=== PATIENT | female | born 1960 | race African-American/Black ===

== ENCOUNTER 2017-07-12 10:47 | Inpatient (IN) | payer OTHER ==
[2017-07-12 13:06] VITALS: BMI 25.7
--- NOTE | 2017-07-12 15:19 | HP ---
CIWA Score - CIWA Score Nausea/Vomitin-No Nausea/No Vomiting Muscle Tremors: 4-Moderate,w/Arms Extend Anxiety: 3 Agitation: 4-Moderately Restless Paroxysmal Sweats: 3 Orientation: 0-Oriented Tacttile Disturbances: 0-None Auditory Disturbances: 0-None Visual Disturbances: 0-None Headache: 2-Mild CIWA-Ar Total Score: 16 Admission ROS BHS - HPI Chief Complaint: I am here for detox Allergies/Adverse Reactions: Allergies Allergy/AdvReac Type Severity Reaction Status Date / Time No Known Allergies Allergy Verified 07/12/17 14:45 History of Present Illness: pt requires detox Exam Limitations: Physical Impairment - Ebola screening Have you traveled outside of the country in the last 21 days: No Have you had contact with anyone from an Ebola affected area: No Have you been sick,other than usual withdrawal symptoms: No Do you have a fever: No - Review of Systems Constitutional: Chills, Diaphoresis, Loss of Appetite, Night Sweats, Changes in sleep EENT: reports: Nose Bleeding, Nose Congestion Respiratory: reports: No Symptoms reported Cardiac: reports: Syncope GI: reports: Diarrhea, Poor Fluid Intake : reports: No Symptoms Reported Musculoskeletal: reports: Joint Pain Integumentary: reports: Flushing, Sweating Neuro: reports: Headache, Tingling, Tremors Endocrine: reports: Excessive Sweating, Flushing, Intolerance to Cold, Increased Urine Hematology: reports: No Symptoms Reported Psychiatric: reports: Judgement Intact, Mood/Affect Appropiate, Orientated x3, Agitated, Anxious Other Systems: Reviewed and Negative Patient History - Patient Medical History Hx Anemia: No Hx Asthma: No Hx Chronic Obstructive Pulmonary Disease (COPD): No Hx Cancer: No Hx Cardiac Disorders: No Hx Congestive Heart Failure: No Hx Hypertension: No Hx Hypercholesterolemia: No Hx Pacemaker: No HX Cerebrovascular Accident: No Hx Seizures: No Hx Dementia: No Hx Diabetes: No Hx Gastrointestinal Disorders: No Hx Genitourinary Disorders: No Hx Sexually Transmitted Disorders: No Hx Renal Disease (ESRD): No Hx Thyroid Disease: No Hx Human Immunodeficiency Virus (HIV): No (negative) Hx Hepatitis C: Yes Hx Depression: No Hx Suicide Attempt: No (denies) Hx Bipolar Disorder: No Hx Schizophrenia: No - Patient Surgical History Past Surgical History: No Hx Neurologic Surgery: No Hx Cataract Extraction: No Hx Cardiac Surgery: No Hx Lung Surgery: No Hx Breast Surgery: No Hx Breast Biopsy: No Hx Abdominal Surgery: No Hx Appendectomy: No Hx Cholecystectomy: No Hx Genitourinary Surgery: No Hx Section: No Hx Orthopedic Surgery: Yes (fx, right thigh) - PPD History Previous Implant?: Yes Documented Results: Negative w/o proof Implanted On Prior R Admission?: No PPD to be Administered?: Yes - Reproductive History Patient is a Female of Child Bearing Age (11 -55 yrs old): No - Smoking Cessation Smoking history: Never smoked Have you smoked in the past 12 months: No Hx Chewing Tobacco Use: No Initiated information on smoking cessation: No - Substance & Tx. History Hx Alcohol Use: Yes Hx Substance Use: No Substance Use Type: Alcohol Hx Substance Use Treatment: Yes (last detox at [facility] 3 weeks ago) - Substances Abused Alcohol-vodka/beer Route: Oral Frequency: 3-6 times per week Amount used: 1/2 pt./4 (16 oz.) Age of first use: 15 Date of Last Use: 07/12/17 Family Disease History - Family Disease History Family History: Denies Admission Physical Exam S - Vital Signs Vital Signs: Vital Signs - 24 hr 07/12/17 13:01 Temperature 99.1 F Pulse Rate 94 H Respiratory 20 Rate Blood Pressure 124/59 - Physical General Appearance: Yes: Appropriately Dressed, Moderate Distress, Tremorous, Irritable, Sweating, Anxious HEENTM: Yes: Normal Voice, Nasal Congestion, Rhinorrhea Respiratory: Yes: Lungs Clear, Normal Breath Sounds, No Respiratory Distress Neck: Yes: No masses,lesions,Nodules Breast: Yes: Within Normal Limits Cardiology: Yes: Regular Rhythm, Regular Rate, S1, S2 Abdominal: Yes: Normal Bowel Sounds, Non Tender, Soft Genitourinary: Yes: Within Normal Limits Back: Yes: Normal Inspection Musculoskeletal: Yes: full range of Motion, Muscle Pain Extremities: Yes: Normal Capillary Refill, Tremors Neurological: Yes: Fully Oriented, Alert, Normal Response Integumentary: Yes: Normal Color, Diaphoresis Lymphatic: Yes: Within Normal Limits - Diagnostic (1) Alcohol dependence with uncomplicated withdrawal Current Visit: Yes Status: Chronic (2) Knee pain, chronic Current Visit: Yes Status: Chronic Qualifiers: Laterality: right Qualified Code(s): M25.561 - Pain in right knee; M25.561 - Pain in right knee; G89.29 - Other chronic pain; G89.29 - Other chronic pain (3) Hepatitis C Current Visit: Yes Status: Chronic Qualifiers: Hepatic coma status: without hepatic coma Cleared for Admission [facility] - Detox or Rehab [facility] Level of Care: Medically Managed Detox Regimen/Protocol: Librium [facility] Breath Alcohol Content Breath Alcohol Content: 0.054 Urine Pregancy Test - Result Urine Test Results: Negative- NO Line Present Urine Drug Screen - Results Drug Screen Negative: Yes
[2017-07-12] MEDS ORDERED: MAGNESIUM CITRATE 300 ML BOTTLE PO PRN (15:23)
[2017-07-12] MEDS ORDERED: chlordiazePOXIDE HCL 25 MG CAPSULE PO PRN (15:23)
[2017-07-12] MEDS ORDERED: MENTHOL/PHENOL 1 EACH UD MM PRN (15:23)
[2017-07-12] MEDS ORDERED: hydrOXYzine PAMOATE 50 MG CAPSULE (FP) PO PRN (15:23)
[2017-07-12] MEDS ORDERED: MAG HYDROX/AL HYDROX/SIMETH 30 ML UNIT-DOSE CUP PO PRN (15:23)
[2017-07-12] MEDS ORDERED: MAGNESIUM HYDROX 2400MG/30ML ORAL SUSPENSION 30 ML CUP PO PRN (15:23)
[2017-07-12] MEDS ORDERED: LOPERAMIDE HCL 2 MG CAPSULE PO PRN (15:23)
[2017-07-12] MEDS ORDERED: chlordiazePOXIDE HCL 25 MG CAPSULE PO ONE (16:45)
[2017-07-12] MEDS: chlordiazePOXIDE HCL 25 MG CAPSULE PO SCH ×2 (17:30→23:30)
[2017-07-12 21:58] LABS: URINE APPEARANCE CLEAR; URINE BILIRUBIN NEGATIVE (NEGATIVE); URINE BLOOD NEGATIVE (NEGATIVE); URINE COLOR LTYELLOW; URINE GLUCOSE (UA) NEGATIVE (NEGATIVE); URINE KETONE NEGATIVE (NEGATIVE); URINE NITRITE NEGATIVE (NEGATIVE); URINE PROTEIN NEGATIVE (NEGATIVE); URINE UROBILINOGEN NEGATIVE mg/dL (0.2-1.0)
[2017-07-12] MEDS: THIAMINE HCL 100 MG TABLET (FP) PO SCH (23:30)
[2017-07-13] MEDS: chlordiazePOXIDE HCL 25 MG CAPSULE PO SCH ×4 (05:32→22:10)
[2017-07-13 09:49] LABS: ALBUMIN 3.3 g/dl (3.4-5.0); ALK PHOS 76 U/L (45-117); ANION GAP 10 (8-16); BILIRUBIN,TOTAL 0.6 mg/dL (0.2-1.0); CALCIUM 8.8 mg/dL (8.5-10.1); CO2 27 mmol/L (21-32); CREATININE 0.6 mg/dL (0.55-1.02); GLUCOSE,RANDOM 93 mg/dL (74-106); SGOT/AST 52 U/L (15-37); SGPT/ALT 58 U/L (12-78); TOT PROT 6.6 g/dl (6.4-8.2)
[2017-07-13] MEDS: PRENATAL VITAMINS W/ FOLIC ACID TABLET (FP) PO SCH (10:14)
[2017-07-13] MEDS: P-EPHED 60MG/TRIPROLIDI 2.5MG TABLET PO PRN (10:15)
[2017-07-13] MEDS: ACETAMINOPHEN 325 MG TABLET (FP) PO PRN ×2 (10:17→22:36)
--- NOTE | 2017-07-13 10:35 | PN ---
S CIWA - CIWA Score Nausea/Vomitin Muscle Tremors: 3 Anxiety: 3 Agitation: 3 Paroxysmal Sweats: 1-Minimal Palms Moist Orientation: 0-Oriented Tacttile Disturbances: 1-Very Mild Itch/Numbness Auditory Disturbances: 1-Very Mild Visual Disturbances: 0-None Headache: 1-Very Mild CIWA-Ar Total Score: 16 BHS Progress Note (SOAP) Subjective: alert,irritable,anxious,interrupted sleep,tremor Objective: 07/13/17 10:33 Vital Signs Temperature 99.1 F 07/13/17 06:00 Pulse Rate 87 07/13/17 06:00 Respiratory Rate 18 07/13/17 06:00 Blood Pressure 145/93 07/13/17 06:00 O2 Sat by Pulse Oximetry (%) ekg nsr inverted t in v3 no chest pain,no sob,no dizziness Assessment: 07/13/17 10:34 withdrawal symptom Plan: continue detox
[2017-07-13 11:09] LABS: URINE LEUK ESTERASE Negative (NEGATIVE)
[2017-07-13] MEDS ORDERED: FLU VACCINE QUAD 60 MCG/0.5 ML (MDV 17-18) IM ONE (12:00)
--- NOTE | 2017-07-13 12:05 | EKG ---
Test Reason : Blood Pressure : / mmHG Vent. Rate : 084 BPM Atrial Rate : 084 BPM P-R Int : 192 ms QRS Dur : 106 ms QT Int : 418 ms P-R-T Axes : 058 045 046 degrees QTc Int : 493 ms NORMAL SINUS RHYTHM NONSPECIFIC T WAVE ABNORMALITY PROLONGED QT ABNORMAL ECG NO PREVIOUS ECGS AVAILABLE Confirmed by DIVINE CANELA, ELISABETH ([id number]) on 07/13/2017 12:04:48 PM Referred By: Hussain Zaldivar Confirmed By:ELISABETH HASKINS MD
[2017-07-13] MEDS: FLUTICASONE PROP 0.05% 16 GM NASAL SPRAY NS SCH ×2 (12:21→22:10)
[2017-07-13 14:51] LABS: MCH 32.2 pg (25.7-33.7); MCHC 32.2 g/dl (32.0-36.0); MEAN PLT VOLUME 9.4 fl (7.5-11.1); PLATELET COUNT 114 K/MM3 (134-434); WHITE BLOOD COUNT 6.6 K/mm3 (4.0-10.0)
[2017-07-13 15:13] LABS: HIV 1 & 2 AB NEGATIVE; HIV 1 AGp24 NEGATIVE
[2017-07-13] MEDS: THIAMINE HCL 100 MG TABLET (FP) PO SCH (22:10)
[2017-07-13] MEDS: diphenhydrAMINE HCL 50 MG CAPSULE PO PRN (22:11)
[2017-07-14] MEDS: chlordiazePOXIDE HCL 25 MG CAPSULE PO SCH ×2 (05:27→10:31)
[2017-07-14] MEDS: P-EPHED 60MG/TRIPROLIDI 2.5MG TABLET PO PRN (05:27)
[2017-07-14] MEDS: IBUPROFEN 400 MG TABLET (FP) PO PRN (05:27)
[2017-07-14] MEDS: PRENATAL VITAMINS W/ FOLIC ACID TABLET (FP) PO SCH (10:31)
[2017-07-14] MEDS: FLUTICASONE PROP 0.05% 16 GM NASAL SPRAY NS SCH ×2 (10:32→22:29)
[2017-07-14] MEDS: ACETAMINOPHEN 325 MG TABLET (FP) PO PRN (10:33)
[2017-07-14] MEDS: guaiFENesin/D-METHORPHAN HB 10 ML UNIT-DOSE CUPS PO PRN (10:34)
--- NOTE | 2017-07-14 10:50 | PN ---
S CIWA - CIWA Score Nausea/Vomitin Muscle Tremors: 3 Anxiety: 3 Agitation: 2 Paroxysmal Sweats: 1-Minimal Palms Moist Orientation: 0-Oriented Tacttile Disturbances: 1-Very Mild Itch/Numbness Auditory Disturbances: 1-Very Mild Visual Disturbances: 0-None Headache: 2-Mild CIWA-Ar Total Score: 16 BHS Progress Note (SOAP) Subjective: alert,irritable,anxious,interrupted sleep,tremor Objective: 07/14/17 10:47 Vital Signs Temperature 97.5 F L 07/14/17 09:29 Pulse Rate 91 H 07/14/17 09:29 Respiratory Rate 16 07/14/17 09:29 Blood Pressure 120/79 07/14/17 09:29 O2 Sat by Pulse Oximetry (%) Laboratory Last Values WBC 6.6 K/mm3 (4.0-10.0) 07/13/17 07:00 RBC 3.36 M/mm3 (3.60-5.2) L 07/13/17 07:00 Hgb 10.8 GM/dL (10.7-15.3) 07/13/17 07:00 Hct 33.6 % (32.4-45.2) 07/13/17 07:00 MCV 100.0 fl (80-96) H 07/13/17 07:00 MCH 32.2 pg (25.7-33.7) 07/13/17 07:00 MCHC 32.2 g/dl (32.0-36.0) 07/13/17 07:00 RDW 20.0 % (11.6-15.6) H 07/13/17 07:00 Plt Count 114 K/MM3 (134-434) L 07/13/17 07:00 MPV 9.4 fl (7.5-11.1) 07/13/17 07:00 Sodium 139 mmol/L (136-145) 07/13/17 07:00 Potassium 3.3 mmol/L (3.5-5.1) L 07/13/17 07:00 Chloride 102 mmol/L (98-107) 07/13/17 07:00 Carbon Dioxide 27 mmol/L (21-32) 07/13/17 07:00 Anion Gap 10 (8-16) 07/13/17 07:00 BUN 7 mg/dL (7-18) 07/13/17 07:00 Creatinine 0.6 mg/dL (0.55-1.02) 07/13/17 07:00 Creat Clearance w eGFR > 60 (>60) 07/13/17 07:00 Random Glucose 93 mg/dL (74-106) 07/13/17 07:00 Calcium 8.8 mg/dL (8.5-10.1) 07/13/17 07:00 Total Bilirubin 0.6 mg/dL (0.2-1.0) 07/13/17 07:00 AST 52 U/L (15-37) H 07/13/17 07:00 ALT 58 U/L (12-78) 07/13/17 07:00 Alkaline Phosphatase 76 U/L (45-117) 07/13/17 07:00 Total Protein 6.6 g/dl (6.4-8.2) 07/13/17 07:00 Albumin 3.3 g/dl (3.4-5.0) L 07/13/17 07:00 Urine Color Ltyellow 07/12/17 21:30 Urine Appearance Clear 07/12/17 21:30 Urine pH 6.0 (5.0-8.0) 07/12/17 21:30 Ur Specific [place] 1.015 (1.005-1.025) 07/12/17 21:30 Urine Protein Negative (NEGATIVE) 07/12/17 21:30 Urine Glucose (UA) Negative (NEGATIVE) 07/12/17 21:30 Urine Ketones Negative (NEGATIVE) 07/12/17 21:30 Urine Blood Negative (NEGATIVE) 07/12/17 21:30 Urine Nitrite Negative (NEGATIVE) 07/12/17 21:30 Urine Bilirubin Negative (NEGATIVE) 07/12/17 21:30 Urine Urobilinogen Negative mg/dL (0.2-1.0) 07/12/17 21:30 Ur Leukocyte Esterase Negative (NEGATIVE) 07/12/17 21:30 RPR Titer Nonreactive (NONREACTIVE) 07/13/17 07:00 HIV 1&2 Antibody Screen Negative 07/13/17 09:10 HIV P24 Antigen Negative 07/13/17 09:10 Assessment: 07/14/17 10:50 withdrawal symptom Plan: continue detox
[2017-07-14] MEDS: chlordiazePOXIDE 5 MG CAPSULE PO SCH ×2 (17:15→22:27)
[2017-07-14] MEDS: diphenhydrAMINE HCL 50 MG CAPSULE PO PRN (22:27)
[2017-07-14] MEDS: THIAMINE HCL 100 MG TABLET (FP) PO SCH (22:27)
[2017-07-15] MEDS: ACETAMINOPHEN 325 MG TABLET (FP) PO PRN ×2 (05:20→22:22)
[2017-07-15] MEDS: chlordiazePOXIDE 5 MG CAPSULE PO SCH ×2 (05:20→10:20)
[2017-07-15] MEDS: POTASSIUM CHLORIDE TABS 20 MEQ TABLET.ER (FP) PO SCH ×3 (08:02→22:20)
[2017-07-15] MEDS: FLUTICASONE PROP 0.05% 16 GM NASAL SPRAY NS SCH ×2 (10:00→22:19)
[2017-07-15] MEDS: PRENATAL VITAMINS W/ FOLIC ACID TABLET (FP) PO SCH (10:20)
[2017-07-15] MEDS: IBUPROFEN 400 MG TABLET (FP) PO PRN (10:21)
[2017-07-15] MEDS: P-EPHED 60MG/TRIPROLIDI 2.5MG TABLET PO PRN (10:21)
[2017-07-15] MEDS: guaiFENesin/D-METHORPHAN HB 10 ML UNIT-DOSE CUPS PO PRN (10:21)
--- NOTE | 2017-07-15 10:28 | PN ---
S Progress Note (SOAP) Subjective: alert,irritable,anxious,interrupted sleep Objective: 07/15/17 10:27 Vital Signs Temperature 97.4 F L 07/15/17 06:14 Pulse Rate 84 07/15/17 06:14 Respiratory Rate 18 07/15/17 06:14 Blood Pressure 139/84 07/15/17 06:14 O2 Sat by Pulse Oximetry (%) Assessment: 07/15/17 10:27 withdrawal symptom Plan: continue detox,discharge in am
[2017-07-15] MEDS: chlordiazePOXIDE HCL 10 MG CAPSULE PO SCH ×2 (17:55→22:20)
[2017-07-15] MEDS: THIAMINE HCL 100 MG TABLET (FP) PO SCH (22:19)
[2017-07-15] MEDS: diphenhydrAMINE HCL 50 MG CAPSULE PO PRN (22:20)
[2017-07-16] MEDS: chlordiazePOXIDE HCL 10 MG CAPSULE PO SCH (05:47)
[2017-07-16] MEDS: ACETAMINOPHEN 325 MG TABLET (FP) PO PRN ×2 (05:48→10:41)
--- NOTE | 2017-07-16 10:01 | DS ---
[facility] Detox Discharge Summary Admission Date: 07/12/17 Discharge Date: 07/16/17 - History Present History: Alcohol Dependence Additional Comments: FOLLOW UP WITH AFTER CARE PROGRAM ARRANGEMENT Pertinent Past History: HEPATITIS C KNEE PAIN - Physical Exam Results Vital Signs: Vital Signs Temperature 98.2 F 07/16/17 06:38 Pulse Rate 85 07/16/17 06:38 Respiratory Rate 18 07/16/17 06:38 Blood Pressure 106/66 07/16/17 06:38 O2 Sat by Pulse Oximetry (%) Pertinent Admission Physical Exam Findings: WITHDRAWAL SYMPTOM - Treatment Hospital Course: Detox Protocol Followed, Detoxed Safely, Responded well, Discharged Condition Good Patient has Accepted a Rehab Referral to: DECLINED - Medication Discharge Medications: Ambulatory Orders Unobtainable [Unobtainable] 07/12/17 - Diagnosis (1) Alcohol dependence with uncomplicated withdrawal Current Visit: Yes Status: Chronic (2) Hepatitis C Current Visit: Yes Status: Chronic Qualifiers: Hepatic coma status: without hepatic coma (3) Knee pain, chronic Current Visit: Yes Status: Chronic Qualifiers: Laterality: right Qualified Code(s): M25.561 - Pain in right knee; M25.561 - Pain in right knee; G89.29 - Other chronic pain; G89.29 - Other chronic pain - AMA Did Patient Leave Against Medical Advice: No
[2017-07-16] MEDS: FLUTICASONE PROP 0.05% 16 GM NASAL SPRAY NS SCH (10:40)
[2017-07-16] MEDS: PRENATAL VITAMINS W/ FOLIC ACID TABLET (FP) PO SCH (10:40)
[2017-07-16] MEDS: POTASSIUM CHLORIDE TABS 20 MEQ TABLET.ER (FP) PO SCH (10:40)
[2017-07-16 10:57] VITALS: BP 116/79; PULSE 108; TEMP 98.4
== END 2017-07-16 10:57 | disposition home or self-care (01) | DRG 775 ==
LOC: YASAS 10:47 → Y6N 15:18
PROVIDERS: ADMIT Internal Medicine; ATTEND Internal Medicine
PROC: HZ2ZZZZ Detoxification Services for Substance Abuse Treatment (ICD-10-PCS; principal; 2017-07-12)
DX: F10.230 Alcohol dependence with withdrawal, uncomplicated (principal); B18.2 Chronic viral hepatitis C; M25.561 Pain in right knee; G89.29 Other chronic pain
CPT/HCPCS: 36415; 80053; 81003; 85027; 86593; 87389; 90688; 93005; 93010; G0008

== ENCOUNTER 2018-06-04 11:06 | Inpatient (IN) | payer OTHER ==
[2018-06-04 12:49] VITALS: BMI 28.1
--- NOTE | 2018-06-04 14:44 | HP ---
CIWA Score - CIWA Score Nausea/Vomitin Muscle Tremors: 3 Anxiety: 3 Agitation: 2 Paroxysmal Sweats: 3 Orientation: 0-Oriented Tacttile Disturbances: 0-None Auditory Disturbances: 0-None Visual Disturbances: 0-None Headache: 0-None Present CIWA-Ar Total Score: 14 Admission ROS S - HPI Chief Complaint: "They told me to come and get detox" Allergies/Adverse Reactions: Allergies Allergy/AdvReac Type Severity Reaction Status Date / Time No Known Allergies Allergy Verified 06/04/18 13:12 History of Present Illness: 58 y/o female with a long history of alcohol addiction here requesting detox. Pt stated she came because the [facility] wanted her to get detox. She returned to the halfway last night from an alcohol related hospital visit for 5 days. Pt stated the longest she had been sober for was a month". Hx of Seizure, Rheumatoid arthritis. Denies any psychiatric hx. Denies past or current SI. - Ebola screening Have you traveled outside of the country in the last 21 days: No (N) Have you had contact with anyone from an Ebola affected area: No Have you been sick,other than usual withdrawal symptoms: No Do you have a fever: No - Review of Systems Constitutional: No Symptoms Reported EENT: reports: No Symptoms Reported Respiratory: reports: No Symptoms reported Cardiac: reports: No Symptoms Reported GI: reports: Abdominal Distended, Diarrhea, Vomiting : reports: No Symptoms Reported Musculoskeletal: reports: No Symptoms Reported Integumentary: reports: No Symptoms Reported Neuro: reports: No Symptoms reported Endocrine: reports: No Symptoms Reported Hematology: reports: No Symptoms Reported Psychiatric: reports: Mood/Affect Appropiate, Orientated x3 Other Systems: Reviewed and Negative Patient History - Patient Medical History Hx Anemia: No Hx Asthma: No Hx Chronic Obstructive Pulmonary Disease (COPD): No Hx Cancer: No Hx Cardiac Disorders: No Hx Congestive Heart Failure: No Hx Hypertension: No Hx Hypercholesterolemia: No Hx Pacemaker: No HX Cerebrovascular Accident: No Hx Seizures: Yes (MAY 2018) Hx Dementia: No Hx Diabetes: No Hx Gastrointestinal Disorders: Yes (Gastritis) Hx Liver Disease: Yes (cirrhosis) Hx Genitourinary Disorders: No Hx Sexually Transmitted Disorders: No Hx Renal Disease (ESRD): No Hx Thyroid Disease: No Hx Human Immunodeficiency Virus (HIV): No (negative) Hx Hepatitis C: Yes Hx Depression: No Hx Suicide Attempt: No Hx Bipolar Disorder: No Hx Schizophrenia: No - Patient Surgical History Past Surgical History: Yes Hx Neurologic Surgery: Yes (head trauma , 2008 in [facility] Hx Cataract Extraction: No Hx Cardiac Surgery: No Hx Lung Surgery: Yes Hx Breast Surgery: No Hx Breast Biopsy: No Hx Abdominal Surgery: No Hx Appendectomy: No Hx Cholecystectomy: No Hx Genitourinary Surgery: No Hx Section: No Hx Orthopedic Surgery: Yes (fx, right thigh (fall) , 2011) Hx Hysterectomy: No Anesthesia Reaction: No - PPD History Previous Implant?: Yes Implanted On Prior [facility] Admission?: Yes Date: 07/14/17 Results: 0mm PPD to be Administered?: No - Reproductive History Patient is a Female of Child Bearing Age (11 -55 yrs old): No - Smoking Cessation Smoking history: Never smoked Have you smoked in the past 12 months: No Hx Chewing Tobacco Use: No - Substances Abused Alcohol Route: Oral Frequency: Daily Amount used: 1/2 PINT OF VODKA, 2 CANS OF BEER Age of first use: 15 Date of Last Use: 06/04/18 Family Disease History - Family Disease History Family Disease History: Heart Disease: Father (), Other: Father, Mother (Alive) Admission Physical Exam [facility] - Vital Signs Vital Signs: Vital Signs - 24 hr 06/04/18 12:45 Temperature 99.1 F Pulse Rate 83 Respiratory 18 Rate Blood Pressure 148/101 - Physical General Appearance: Yes: Mild Distress HEENTM: Yes: Other (missing teeth, no dentures) Respiratory: Yes: Normal Breath Sounds, No Respiratory Distress Neck: Yes: Within Normal Limits Breast: Yes: Breast Exam Deferred Cardiology: Yes: Regular Rate Abdominal: Yes: Non Tender, Distended Genitourinary: Yes: Within Normal Limits Back: Yes: Normal Inspection Musculoskeletal: Yes: full range of Motion, Gait Steady Extremities: Yes: Normal Capillary Refill Neurological: Yes: Motor Strength 5/5 Integumentary: Yes: Within Normal Limits Lymphatic: Yes: Within Normal Limits - Diagnostic (1) Alcohol dependence with uncomplicated withdrawal Current Visit: Yes Status: Acute (2) Seizure due to alcohol withdrawal Current Visit: Yes Status: Chronic (3) Depressive disorder Current Visit: Yes Status: Chronic Comment: As per self-report. Cleared for Admission [facility] - Detox or Rehab [facility] Level of Care: Medically Managed Detox Regimen/Protocol: Librium [facility] Breath Alcohol Content Breath Alcohol Content: 0.003 Urine Pregancy Test - Result Urine Test Results: Negative- NO Line Present Urine Drug Screen - Results Drug Screen Negative: No Urine Drug Screen Results: BZO-Benzodiazepines, TCA-Tricyclic Antidepress
[2018-06-04] MEDS ORDERED: hydrOXYzine PAMOATE 50 MG CAPSULE (FP) PO PRN (15:07)
[2018-06-04] MEDS ORDERED: LOPERAMIDE HCL 2 MG CAPSULE PO PRN (15:07)
[2018-06-04] MEDS ORDERED: IBUPROFEN 400 MG TABLET (FP) PO PRN (15:07)
[2018-06-04] MEDS ORDERED: ACETAMINOPHEN 325 MG TABLET (FP) PO PRN (15:07)
[2018-06-04] MEDS ORDERED: chlordiazePOXIDE HCL 25 MG CAPSULE PO PRN (15:07)
[2018-06-04] MEDS ORDERED: guaiFENesin/D-METHORPHAN HB 10 ML UNIT-DOSE CUPS PO PRN (15:07)
[2018-06-04] MEDS ORDERED: MAGNESIUM CITRATE 300 ML BOTTLE PO PRN (15:07)
[2018-06-04] MEDS ORDERED: MAGNESIUM HYDROX 2400MG/30ML ORAL SUSPENSION 30 ML CUP PO PRN (15:07)
[2018-06-04] MEDS ORDERED: P-EPHED 60MG/TRIPROLIDI 2.5MG TABLET PO PRN (15:07)
[2018-06-04] MEDS ORDERED: MENTHOL/PHENOL 1 EACH UD MM PRN (15:07)
[2018-06-04] MEDS ORDERED: MAG HYDROX/AL HYDROX/SIMETH 30 ML UNIT-DOSE CUP PO PRN (15:07)
[2018-06-04] MEDS: ASPIRIN 81 MG CHEWABLE TABLETS PO SCH (15:44)
[2018-06-04] MEDS: chlordiazePOXIDE HCL 25 MG CAPSULE PO SCH ×2 (18:10→22:13)
[2018-06-04] MEDS ORDERED: levETIRAcetam 250 MG TABLET (FP) PO ONE (20:05)
[2018-06-04] MEDS ORDERED: levETIRAcetam 500 MG TABLET (FP) PO ONE (20:05)
[2018-06-04 20:38] LABS: URINE APPEARANCE CLEAR; URINE BILIRUBIN NEGATIVE (<2.0 mg/dL); URINE COLOR LTYELLOW; URINE GLUCOSE (UA) NEGATIVE (NEGATIVE); URINE KETONE TRACE (NEGATIVE); URINE NITRITE NEGATIVE (NEGATIVE); URINE PROTEIN NEGATIVE (NEGATIVE); URINE UROBILINOGEN NEGATIVE mg/dL (0.2-1.0)
[2018-06-04 20:45] LABS: URINE LEUK ESTERASE 2+ (NEGATIVE)
[2018-06-04 20:48] LABS: EPI CELLS RARE /HPF (FEW); URINE MUCUS RARE
[2018-06-04] MEDS ORDERED: levETIRAcetam 250 MG TABLET (FP) PO SCH (22:00)
[2018-06-04] MEDS: MELATONIN 5 MG TABLETS PO PRN (22:13)
[2018-06-04] MEDS: THIAMINE HCL 100 MG TABLET (FP) PO SCH (22:13)
[2018-06-05] MEDS: chlordiazePOXIDE HCL 25 MG CAPSULE PO SCH ×4 (06:10→22:10)
--- NOTE | 2018-06-05 09:56 | CONSULT ---
[facility] Psychiatric Consult - Data Date of interview: 06/05/18 Admission source: [facility] Identifying data: Patient is a 58 year old female, , unemployed, homless and supported by [facility]. This is one of multiple admissions for patient. Pt. admitted to for alcohol dependence. Substance Abuse History: - Smoking Cessation. Smoking history: Never smoked. Have you smoked in the past 12 months: No. Hx Chewing Tobacco Use: No. - Substances Abused. Alcohol. Route: Oral. Frequency: Daily. Amount used: 1 /2 PINT OF VODKA, 2 CANS OF BEER. Age of first use: 15. Date of Last Use: 12/17 Medical History: Seizures, Gastritis, Cirrhosis, fracture right thigh surgery Psychiatric History: Patient denies h/o psychiatric hospitalization, outpatient care and suicide attempt. Patient's psychiatric history is unclear. As per pharmacy claims patient is prescribed lexapro 5mg and doxepin 50mg but states she does not take medications. Pt. reports poor sleep. Physical/Sexual Abuse/Trauma History: denies. Mental Status Exam - Mental Status Exam Alert and Oriented to: Time, Place, Person Cognitive Function: Good Patient Appearance: Well Groomed Mood: Euthymic Affect: Mood Congruent Patient Behavior: Appropriate, Cooperative Speech Pattern: Clear, Appropriate Voice Loudness: Normal Thought Process: Intact, Goal Oriented Thought Disorder: Not Present Hallucinations: Denies Suicidal Ideation: Denies Homicidal Ideation: Denies Insight/Judgement: Poor Sleep: Poorly Appetite: Fair Muscle strength/Tone: Normal Gait/Station: Normal Psychiatric Findings - Problem List (Williams 1, 2,3) (1) Alcohol dependence with uncomplicated withdrawal Current Visit: Yes Status: Acute (2) Alcohol-induced mood disorder Current Visit: Yes Status: Acute (3) Insomnia Current Visit: Yes Status: Acute - Initial Treatment Plan Initial Treatment Plan: Psychoeducation provided. Detoxification in progress. Will order doxepin 25mg qhs. Benefits and side effects discussed. Verbal consent given.
[2018-06-05 10:14] LABS: HEMATOCRIT 39.6 % (32.4-45.2); HEMOGLOBIN 12.8 GM/dL (10.7-15.3); MCH 30.8 pg (25.7-33.7); MCHC 32.2 g/dl (32.0-36.0); MEAN CELL VOLUME 95.6 fl (80-96); MEAN PLT VOLUME 9.5 fl (7.5-11.1); PLATELET COUNT 147 K/MM3 (134-434); RBC 4.15 M/mm3 (3.60-5.2); RDW 14.6 % (11.6-15.6); WHITE BLOOD COUNT 3.4 K/mm3 (4.0-10.0)
[2018-06-05] MEDS: ASPIRIN 81 MG CHEWABLE TABLETS PO SCH (10:16)
[2018-06-05] MEDS: PRENATAL VITAMINS W/ FOLIC ACID TABLET (FP) PO SCH (10:16)
[2018-06-05 11:06] LABS: ALBUMIN 3.2 g/dl (3.4-5.0); ANION GAP 10 MMOL/L (8-16); BLOOD UREA NITROGEN 9 mg/dL (7-18); CALCIUM 8.9 mg/dL (8.5-10.1); CHLORIDE 104 mmol/L (98-107); CO2 28 mmol/L (21-32); GLUCOSE,RANDOM 114 mg/dL (74-106); POTASSIUM 3.4 mmol/L (3.5-5.1); SGOT/AST 39 U/L (15-37); SGPT/ALT 32 U/L (12-78); SODIUM 142 mmol/L (136-145)
[2018-06-05 11:08] LABS: ALK PHOS 92 U/L (45-117); BILIRUBIN,TOTAL 0.4 mg/dL (0.2-1.0); CREATININE 0.6 mg/dL (0.55-1.02); TOT PROT 6.7 g/dl (6.4-8.2)
--- NOTE | 2018-06-05 16:33 | EKG ---
Test Reason : Blood Pressure : / mmHG Vent. Rate : 077 BPM Atrial Rate : 077 BPM P-R Int : 188 ms QRS Dur : 110 ms QT Int : 368 ms P-R-T Axes : 042 040 056 degrees QTc Int : 416 ms NORMAL SINUS RHYTHM MINIMAL VOLTAGE CRITERIA FOR LVH, MAY BE NORMAL VARIANT BORDERLINE ECG WHEN COMPARED WITH ECG OF 12-APR-2018 13:16, [place] INTERVAL HAS DECREASED NONSPECIFIC T WAVE ABNORMALITY NO LONGER EVIDENT IN INFERIOR LEADS Confirmed by Jayy Morin ([id number]) on 06/05/2018 4:32:45 PM Referred By: Confirmed By:Jayy Morin
--- NOTE | 2018-06-05 16:35 | PN ---
S CIWA - CIWA Score Nausea/Vomitin-Mild Nausea/No Vomiting Muscle Tremors: 4-Moderate,w/Arms Extend Anxiety: 3 Agitation: 3 Paroxysmal Sweats: 1-Minimal Palms Moist Orientation: 0-Oriented Tacttile Disturbances: 1-Very Mild Itch/Numbness Auditory Disturbances: 0-None Visual Disturbances: 0-None Headache: 0-None Present CIWA-Ar Total Score: 13 BHS Progress Note (SOAP) Subjective: SWEAT TREMOR ANXIETY RESTLESSNESS TROUBLE SLEEP AT NIGHT Objective: 06/05/18 16:34 Vital Signs Temperature 97.7 F 06/05/18 13:48 Pulse Rate 90 06/05/18 13:48 Respiratory Rate 16 06/05/18 13:48 Blood Pressure 121/86 06/05/18 13:48 O2 Sat by Pulse Oximetry (%) Laboratory Last Values WBC 3.4 K/mm3 (4.0-10.0) L 06/05/18 07:00 RBC 4.15 M/mm3 (3.60-5.2) 06/05/18 07:00 Hgb 12.8 GM/dL (10.7-15.3) 06/05/18 07:00 Hct 39.6 % (32.4-45.2) 06/05/18 07:00 MCV 95.6 fl (80-96) 06/05/18 07:00 MCH 30.8 pg (25.7-33.7) 06/05/18 07:00 MCHC 32.2 g/dl (32.0-36.0) 06/05/18 07:00 RDW 14.6 % (11.6-15.6) 06/05/18 07:00 Plt Count 147 K/MM3 (134-434) D 06/05/18 07:00 MPV 9.5 fl (7.5-11.1) D 06/05/18 07:00 Sodium 142 mmol/L (136-145) 06/05/18 07:00 Potassium 3.4 mmol/L (3.5-5.1) L 06/05/18 07:00 Chloride 104 mmol/L (98-107) 06/05/18 07:00 Carbon Dioxide 28 mmol/L (21-32) 06/05/18 07:00 Anion Gap 10 MMOL/L (8-16) 06/05/18 07:00 BUN 9 mg/dL (7-18) 06/05/18 07:00 Creatinine 0.6 mg/dL (0.55-1.02) 06/05/18 07:00 Creat Clearance w eGFR > 60 (>60) 06/05/18 07:00 Random Glucose 114 mg/dL (74-106) H 06/05/18 07:00 Calcium 8.9 mg/dL (8.5-10.1) 06/05/18 07:00 Total Bilirubin 0.4 mg/dL (0.2-1.0) 06/05/18 07:00 AST 39 U/L (15-37) H 06/05/18 07:00 ALT 32 U/L (12-78) 06/05/18 07:00 Alkaline Phosphatase 92 U/L (45-117) 06/05/18 07:00 Total Protein 6.7 g/dl (6.4-8.2) 06/05/18 07:00 Albumin 3.2 g/dl (3.4-5.0) L 06/05/18 07:00 Urine Color Ltyellow 06/04/18 15:34 Urine Appearance Clear 06/04/18 15:34 Urine pH 6.0 (5.0-8.0) 06/04/18 15:34 Ur Specific [place] 1.004 (1.001-1.035) 06/04/18 15:34 Urine Protein Negative (NEGATIVE) 06/04/18 15:34 Urine Glucose (UA) Negative (NEGATIVE) 06/04/18 15:34 Urine Ketones Trace (NEGATIVE) H 06/04/18 15:34 Urine Blood Negative (NEGATIVE) 06/04/18 15:34 Urine Nitrite Negative (NEGATIVE) 06/04/18 15:34 Urine Bilirubin Negative (<2.0 mg/dL) 06/04/18 15:34 Urine Urobilinogen Negative mg/dL (0.2-1.0) 06/04/18 15:34 Ur Leukocyte Esterase 2+ (NEGATIVE) H 06/04/18 15:34 Urine WBC (Auto) 1 /hpf (3-5) 06/04/18 15:34 Urine RBC (Auto) 1 /hpf (0-3) 06/04/18 15:34 Ur Epithelial Cells Rare /HPF (FEW) 06/04/18 15:34 Urine Mucus Rare 06/04/18 15:34 RPR Titer Nonreactive (NONREACTIVE) 06/05/18 07:00 LAB NOTED REPEAT k+ Assessment: 06/05/18 16:35 WITHDRAWAL SX Plan: CONTINUE DETOX
[2018-06-05] MEDS ORDERED: levETIRAcetam 250 MG TABLET (FP) PO ONE (21:50)
[2018-06-05] MEDS ORDERED: levETIRAcetam 500 MG TABLET (FP) PO ONE (21:50)
[2018-06-05] MEDS: THIAMINE HCL 100 MG TABLET (FP) PO SCH (22:09)
[2018-06-05] MEDS: DOXEPIN HCL 25 MG CAPSULE PO SCH (22:10)
[2018-06-05] MEDS: MELATONIN 5 MG TABLETS PO PRN (22:10)
[2018-06-06] MEDS: chlordiazePOXIDE HCL 25 MG CAPSULE PO SCH ×2 (05:23→10:25)
--- NOTE | 2018-06-06 08:56 | PN ---
S CIWA - CIWA Score Nausea/Vomitin-Mild Nausea/No Vomiting Muscle Tremors: 4-Moderate,w/Arms Extend Anxiety: 2 Agitation: 3 Paroxysmal Sweats: 1-Minimal Palms Moist Orientation: 0-Oriented Tacttile Disturbances: 0-None Auditory Disturbances: 0-None Visual Disturbances: 0-None Headache: 1-Very Mild CIWA-Ar Total Score: 12 BHS Progress Note (SOAP) Subjective: sweat tremor anxiety body aches joints pain gi distress Objective: 06/06/18 08:57 Vital Signs Temperature 98.0 F 06/06/18 06:30 Pulse Rate 95 H 06/06/18 06:30 Respiratory Rate 18 06/06/18 06:30 Blood Pressure 100/74 06/06/18 06:30 O2 Sat by Pulse Oximetry (%) Laboratory Last Values WBC 3.4 K/mm3 (4.0-10.0) L 06/05/18 07:00 RBC 4.15 M/mm3 (3.60-5.2) 06/05/18 07:00 Hgb 12.8 GM/dL (10.7-15.3) 06/05/18 07:00 Hct 39.6 % (32.4-45.2) 06/05/18 07:00 MCV 95.6 fl (80-96) 06/05/18 07:00 MCH 30.8 pg (25.7-33.7) 06/05/18 07:00 MCHC 32.2 g/dl (32.0-36.0) 06/05/18 07:00 RDW 14.6 % (11.6-15.6) 06/05/18 07:00 Plt Count 147 K/MM3 (134-434) D 06/05/18 07:00 MPV 9.5 fl (7.5-11.1) D 06/05/18 07:00 Sodium 142 mmol/L (136-145) 06/05/18 07:00 Potassium 3.4 mmol/L (3.5-5.1) L 06/05/18 07:00 Chloride 104 mmol/L (98-107) 06/05/18 07:00 Carbon Dioxide 28 mmol/L (21-32) 06/05/18 07:00 Anion Gap 10 MMOL/L (8-16) 06/05/18 07:00 BUN 9 mg/dL (7-18) 06/05/18 07:00 Creatinine 0.6 mg/dL (0.55-1.02) 06/05/18 07:00 Creat Clearance w eGFR > 60 (>60) 06/05/18 07:00 Random Glucose 114 mg/dL (74-106) H 06/05/18 07:00 Calcium 8.9 mg/dL (8.5-10.1) 06/05/18 07:00 Total Bilirubin 0.4 mg/dL (0.2-1.0) 06/05/18 07:00 AST 39 U/L (15-37) H 06/05/18 07:00 ALT 32 U/L (12-78) 06/05/18 07:00 Alkaline Phosphatase 92 U/L (45-117) 06/05/18 07:00 Total Protein 6.7 g/dl (6.4-8.2) 06/05/18 07:00 Albumin 3.2 g/dl (3.4-5.0) L 06/05/18 07:00 Urine Color Ltyellow 06/04/18 15:34 Urine Appearance Clear 06/04/18 15:34 Urine pH 6.0 (5.0-8.0) 06/04/18 15:34 Ur Specific [place] 1.004 (1.001-1.035) 06/04/18 15:34 Urine Protein Negative (NEGATIVE) 06/04/18 15:34 Urine Glucose (UA) Negative (NEGATIVE) 06/04/18 15:34 Urine Ketones Trace (NEGATIVE) H 06/04/18 15:34 Urine Blood Negative (NEGATIVE) 06/04/18 15:34 Urine Nitrite Negative (NEGATIVE) 06/04/18 15:34 Urine Bilirubin Negative (<2.0 mg/dL) 06/04/18 15:34 Urine Urobilinogen Negative mg/dL (0.2-1.0) 06/04/18 15:34 Ur Leukocyte Esterase 2+ (NEGATIVE) H 06/04/18 15:34 Urine WBC (Auto) 1 /hpf (3-5) 06/04/18 15:34 Urine RBC (Auto) 1 /hpf (0-3) 06/04/18 15:34 Ur Epithelial Cells Rare /HPF (FEW) 06/04/18 15:34 Urine Mucus Rare 06/04/18 15:34 RPR Titer Nonreactive (NONREACTIVE) 06/05/18 07:00 lab noted K+ repeat level pending 06/06/18 08:58 Assessment: 06/06/18 08:58 withdrawal sx Plan: continue detox
[2018-06-06] MEDS: PRENATAL VITAMINS W/ FOLIC ACID TABLET (FP) PO SCH (10:23)
[2018-06-06] MEDS: ASPIRIN 81 MG CHEWABLE TABLETS PO SCH (10:23)
[2018-06-06] MEDS: chlordiazePOXIDE 5 MG CAPSULE PO SCH ×2 (17:32→22:13)
[2018-06-06] MEDS ORDERED: levETIRAcetam 250 MG TABLET (FP) PO ONE (20:40)
[2018-06-06] MEDS ORDERED: levETIRAcetam 500 MG TABLET (FP) PO ONE (20:41)
[2018-06-06] MEDS: THIAMINE HCL 100 MG TABLET (FP) PO SCH (22:13)
[2018-06-06] MEDS: MELATONIN 5 MG TABLETS PO PRN (22:14)
[2018-06-06] MEDS: DOXEPIN HCL 25 MG CAPSULE PO SCH (23:14)
[2018-06-07] MEDS: chlordiazePOXIDE 5 MG CAPSULE PO SCH ×2 (06:25→10:53)
[2018-06-07] MEDS ORDERED: levETIRAcetam 250 MG TABLET (FP) PO ONE ×2 (09:11→22:50)
[2018-06-07] MEDS ORDERED: levETIRAcetam 500 MG TABLET (FP) PO ONE ×2 (09:12→22:50)
[2018-06-07] MEDS: ASPIRIN 81 MG CHEWABLE TABLETS PO SCH (10:52)
[2018-06-07] MEDS: PRENATAL VITAMINS W/ FOLIC ACID TABLET (FP) PO SCH (10:52)
[2018-06-07] MEDS: chlordiazePOXIDE HCL 10 MG CAPSULE PO SCH ×2 (22:51)
[2018-06-07] MEDS: DOXEPIN HCL 25 MG CAPSULE PO SCH (22:51)
[2018-06-07] MEDS: THIAMINE HCL 100 MG TABLET (FP) PO SCH (22:52)
--- NOTE | 2018-06-07 23:14 | PN ---
[facility] Progress Note Note: Denies withdrawal symptoms. Alert and oriented x 3. Vital Signs - 24 hr 06/07/18 06/07/18 06/07/18 00:05 00:30 03:30 Temperature 97.9 F Pulse Rate 100 H Respiratory 19 18 18 Rate Blood Pressure 124/92 06/07/18 06/07/18 06/07/18 08:42 09:00 14:04 Temperature 97.7 F 97.5 F L 98.2 F Pulse Rate 101 H 96 H 98 H Respiratory 20 18 18 Rate Blood Pressure 125/95 125/95 125/78 06/07/18 06/07/18 17:43 22:43 Temperature 98.1 F 97.9 F Pulse Rate 105 H 107 H Respiratory 20 18 Rate Blood Pressure 125/73 143/76 Laboratory Last Values WBC 3.4 K/mm3 (4.0-10.0) L 06/05/18 07:00 RBC 4.15 M/mm3 (3.60-5.2) 06/05/18 07:00 Hgb 12.8 GM/dL (10.7-15.3) 06/05/18 07:00 Hct 39.6 % (32.4-45.2) 06/05/18 07:00 MCV 95.6 fl (80-96) 06/05/18 07:00 MCH 30.8 pg (25.7-33.7) 06/05/18 07:00 MCHC 32.2 g/dl (32.0-36.0) 06/05/18 07:00 RDW 14.6 % (11.6-15.6) 06/05/18 07:00 Plt Count 147 K/MM3 (134-434) D 06/05/18 07:00 MPV 9.5 fl (7.5-11.1) D 06/05/18 07:00 Sodium 142 mmol/L (136-145) 06/05/18 07:00 Potassium 3.9 mmol/L (3.5-5.1) 06/06/18 07:30 Chloride 104 mmol/L (98-107) 06/05/18 07:00 Carbon Dioxide 28 mmol/L (21-32) 06/05/18 07:00 Anion Gap 10 MMOL/L (8-16) 06/05/18 07:00 BUN 9 mg/dL (7-18) 06/05/18 07:00 Creatinine 0.6 mg/dL (0.55-1.02) 06/05/18 07:00 Creat Clearance w eGFR > 60 (>60) 06/05/18 07:00 Random Glucose 114 mg/dL (74-106) H 06/05/18 07:00 Calcium 8.9 mg/dL (8.5-10.1) 06/05/18 07:00 Total Bilirubin 0.4 mg/dL (0.2-1.0) 06/05/18 07:00 AST 39 U/L (15-37) H 06/05/18 07:00 ALT 32 U/L (12-78) 06/05/18 07:00 Alkaline Phosphatase 92 U/L (45-117) 06/05/18 07:00 Total Protein 6.7 g/dl (6.4-8.2) 06/05/18 07:00 Albumin 3.2 g/dl (3.4-5.0) L 06/05/18 07:00 Urine Color Ltyellow 06/04/18 15:34 Urine Appearance Clear 06/04/18 15:34 Urine pH 6.0 (5.0-8.0) 06/04/18 15:34 Ur Specific [place] 1.004 (1.001-1.035) 06/04/18 15:34 Urine Protein Negative (NEGATIVE) 06/04/18 15:34 Urine Glucose (UA) Negative (NEGATIVE) 06/04/18 15:34 Urine Ketones Trace (NEGATIVE) H 06/04/18 15:34 Urine Blood Negative (NEGATIVE) 06/04/18 15:34 Urine Nitrite Negative (NEGATIVE) 06/04/18 15:34 Urine Bilirubin Negative (<2.0 mg/dL) 06/04/18 15:34 Urine Urobilinogen Negative mg/dL (0.2-1.0) 06/04/18 15:34 Ur Leukocyte Esterase 2+ (NEGATIVE) H 06/04/18 15:34 Urine WBC (Auto) 1 /hpf (3-5) 06/04/18 15:34 Urine RBC (Auto) 1 /hpf (0-3) 06/04/18 15:34 Ur Epithelial Cells Rare /HPF (FEW) 06/04/18 15:34 Urine Mucus Rare 06/04/18 15:34 RPR Titer Nonreactive (NONREACTIVE) 06/05/18 07:00 Labs reviewed. Continue detox.
[2018-06-08] MEDS: chlordiazePOXIDE HCL 10 MG CAPSULE PO SCH ×2 (05:47→10:38)
[2018-06-08] MEDS: PRENATAL VITAMINS W/ FOLIC ACID TABLET (FP) PO SCH (10:37)
[2018-06-08] MEDS: ASPIRIN 81 MG CHEWABLE TABLETS PO SCH (10:37)
--- NOTE | 2018-06-08 13:27 | DS ---
[facility] Detox Discharge Summary Admission Date: 06/04/18 Discharge Date: 06/08/18 - History Present History: Alcohol Dependence Pertinent Past History: Admission Chemical Depend. Eval. Start: 06/04/18 11: 52 Freq: ONCE Status: Complete Protocol: Document 06/04/18 13:20 JEAN PAUL (Rec: 06/04/18 13:21 JEAN PAUL [id number]) Substances of Abuse Alcohol Route Oral Frequency Daily Amount used 1/2 PINT OF VODKA, 2 CANS OF BEER Age of first use 15 Date of Last Use 06/04/18 Most recent treatment Treatment Agency Dates of Treatment Completed Treatment Admission Preliminary Information [facility] Start: 06/04/18 11: 52 Text: Status: Complete Freq: ONCE Protocol: Document 06/04/18 12:45 STB (Rec: 06/04/18 12:49 STB [id number]) Travel History Traveled outside of the country in the No last 30 days If so, where? Close contact w/someone who was outside No of country & ill Do you know what country they traveled to? Symptoms Have you been sick,other than usual No withdrawal symptoms General Questions - [facility] Admitted From Home Mode of Arrival Ambulatory Requesting Admission for MEDICAL DETOX FROM ALCOHOL History Provided By Patient Height and Weight Height 5 ft Weight 144 lb Weight Measurement Method Standing Scale Body Mass Index (BMI) 28.1 Vital Signs Vital Signs Refused No Temperature (97.6 F-99.6 F) 99.1 F Temperature Source Oral Pulse Rate (60-90) 83 Respiratory Rate (12-24) 18 Blood Pressure 148/101 Blood Pressure Mean (mm Hg) 116 BP Location Left Arm Blood Pressure Position Sitting Breath Alcohol Content Breath Alcohol Content 0.003 Urine Drug Screen (DM-POTC) Lot Number [id number] Expiration Date 12/31/19 Is Test Valid Yes Drug Screen Negative No Urine Drug Screen Results BZO-Benzodiazepines TCA-Tricyclic Antidepress Admission Test Lot Number [id number] Expiration Date 12/31/19 Horizontal Line in Upper Control Window? Yes Urine Test Results Negative- NO Line Present Patient Search Record Patient Search Completed By: Belongings Placed with Security Contraband Discovered Comment Contraband Confiscated & Given to Consumer Affairs Director Allergies Allergy/AdvReac Type Severity Reaction Status Date / Time No Known Allergies Allergy Verified 06/04/18 13:12 Vital Signs Temp Pulse Resp BP Pulse Ox 97.7 F 105 H 18 129/89 06/08/18 09:17 06/08/18 09:17 06/08/18 09:17 06/08/18 09:17 - Physical Exam Results Vital Signs: Vital Signs Temperature 97.7 F 06/08/18 09:17 Pulse Rate 105 H 06/08/18 09:17 Respiratory Rate 18 06/08/18 09:17 Blood Pressure 129/89 06/08/18 09:17 O2 Sat by Pulse Oximetry (%) - Treatment Hospital Course: Detox Protocol Followed, Detoxed Safely - Medication Discharge Medications: Ambulatory Orders Acamprosate Calcium [Campral -] 333 mg PO BID 04/12/18 Diclofenac Sodium 50 mg PO BID 04/12/18 Folic Acid - 1 mg PO DAILY 04/12/18 Multivitamins [Multivit ([facility] Formulary)] 1 tab PO DAILY 04/12/18 Omeprazole 20 mg PO DAILY 04/12/18 Thiamine HCl [Vitamin B1 -] 100 mg PO DAILY 04/12/18 levETIRAcetam [Keppra -] 750 mg PO BID #60 tablet 04/15/18 Aspirin [ASA -] 81 mg PO DAILY #30 tab.chew 04/22/18 Escitalopram Oxalate [Lexapro -] 5 mg PO DAILY #30 tablet 04/23/18 Doxepin HCl 25 mg PO HS 06/05/18 - AMA Did Patient Leave Against Medical Advice: No
[2018-06-08 13:44] VITALS: BP 132/90; PULSE 100; TEMP 97.5
== END 2018-06-08 14:24 | disposition home or self-care (01) | DRG 775 ==
LOC: YASAS 11:06 → Y6N 15:13
PROC: HZ2ZZZZ Detoxification Services for Substance Abuse Treatment (ICD-10-PCS; principal; 2018-06-04)
DX: F10.230 Alcohol dependence with withdrawal, uncomplicated (principal); F10.24 Alcohol dependence with alcohol-induced mood disorder; F32.9 Major depressive disorder, single episode, unspecified; B18.2 Chronic viral hepatitis C; G47.00 Insomnia, unspecified; G40.509 Epileptic seizures related to external causes, not intractable, without status epilepticus; K74.60 Unspecified cirrhosis of liver; M06.9 Rheumatoid arthritis, unspecified; Z87.19 Personal history of other diseases of the digestive system; Z87.81 Personal history of (healed) traumatic fracture
CPT/HCPCS: 36415; 80053; 81003; 81015; 84132; 85027; 86593; 93005; 93010

== ENCOUNTER 2022-02-06 08:58 | Inpatient (IN) | payer OTHER ==
[2022-02-06] MEDS ORDERED: ACETAMINOPHEN 1000 MG/100 ML BAG IVPB ONE ×2 (10:01→15:31)
[2022-02-06 10:29] LABS: BASO % 0.5 % (0-2.0); EOS % 0.5 % (0-4.5); HEMATOCRIT 38.9 % (32.4-45.2); LYMPH % 19.7 % (8-40); MCH 31.5 pg (25.7-33.7); MCHC 33.4 g/dl (32.0-36.0); MEAN CELL VOLUME 94.4 fl (80-96); MEAN PLT VOLUME 9.8 fl (7.5-11.1); MONO % 5.8 % (3.8-10.2); NEUT % 73.5 % (42.8-82.8); PLATELET COUNT 121 10^3/uL (134-434); RBC 4.12 M/mm3 (3.60-5.2); RDW 15.4 % (11.6-15.6)
[2022-02-06 10:35] LABS: INR 1.27 (0.83-1.09); PROTHROMBIN TIME (PATIENT) 14.6 SEC (9.7-13.0)
[2022-02-06 10:50] LABS: CALCIUM 9.2 mg/dL (8.5-10.1)
[2022-02-06 10:51] LABS: ALBUMIN 3.5 g/dl (3.4-5.0); BLOOD UREA NITROGEN 8.4 mg/dL (7-18)
[2022-02-06 10:53] LABS: PH,URINE 5.5 (5.0-8.0); URINE APPEARANCE CLEAR; URINE BILIRUBIN NEGATIVE (NEGATIVE); URINE COLOR YELLOW; URINE GLUCOSE (UA) NEGATIVE (NEGATIVE); URINE KETONE TRACE (NEGATIVE); URINE LEUK ESTERASE NEGATIVE (NEGATIVE); URINE NITRITE NEGATIVE (NEGATIVE); URINE PROTEIN NEGATIVE (NEGATIVE)
[2022-02-06 10:54] LABS: CREATININE 0.7 mg/dL (0.55-1.3)
[2022-02-06 10:55] LABS: BILIRUBIN,TOTAL 0.3 mg/dL (0.2-1); TOT PROT 7.9 g/dl (6.4-8.2)
[2022-02-06] MEDS ORDERED: ACETAMINOPHEN INJECTION 100 ML IVPB ONE ×2 (11:04→15:32)
[2022-02-06] MEDS: SODIUM CHLORIDE 1,000 ML IV SCH (11:13)
[2022-02-06] MEDS ORDERED: VANCOMYCIN 1 GM in D5W (PRE-DOCKED) 1,000 MG/250 ML IVPB ONE (11:20)
[2022-02-06] MEDS ORDERED: PIPERACILLIN/TAZOB 3.375 GM 3.375 GM in DEXTROSE 5%-WATER - 50 ML IVPB ONE (11:20)
[2022-02-06 11:21] LABS: LACTIC ACID 3.3 mmol/L (0.4-2.0)
[2022-02-06] MEDS ORDERED: VANCOMYCIN 1 GRAM (PRE-DOCKED) 1,000 MG/250 ML BAG IVPB ONE (11:33)
[2022-02-06] MEDS ORDERED: PIPERACILLIN/TAZOB 3.375 GM 3.375 GM/50 ML BAG IVPB ONE (11:34)
[2022-02-06 11:45] LABS: VENOUS BASE EXCESS -1.7 mmol/L (-2-2); VENOUS O2 SATURATION 39.2 % (70-80); VENOUS PCO2 62.1 mmHg (38-52); VENOUS PH 7.25 (7.310-7.410)
[2022-02-06 13:36] LABS: LACTIC ACID 2.5 mmol/L (0.4-2.0)
[2022-02-06] MEDS ORDERED: FOLIC ACID 1 MG TABLET (FP) PO ONE (15:49)
[2022-02-06] MEDS ORDERED: FOLIC ACID 1 MG TABLET (FP) ONE (16:11)
[2022-02-06] MEDS ORDERED: HALOPERIDOL LACTATE 5 MG/ML IV ONE (16:42)
[2022-02-06] MEDS ORDERED: HALOPERIDOL LACTATE 5 MG/ML ONE (16:46)
[2022-02-06] MEDS ORDERED: ATORVASTATIN CA 20 MG TABLET (FP) PO SCH (22:00)
[2022-02-06] MEDS ORDERED: OLANZapine 5 MG TABLET PO SCH (22:00)
[2022-02-06] MEDS ORDERED: ATORVASTATIN CA 20 MG TABLET (FP) ONE (22:08)
[2022-02-06] MEDS ORDERED: OLANZapine 10 MG TABLET ONE (22:08)
[2022-02-06] MEDS ORDERED: levETIRAcetam 500 MG TABLET (FP) PO ONE (22:09)
[2022-02-06] MEDS ORDERED: HEPARIN NA (PORCINE) 5,000 UNITS/ML 1ML VIAL ONE (22:09)
[2022-02-06] MEDS: HEPARIN NA (PORCINE) 5,000 UNITS/ML 1ML VIAL SQ SCH (22:23)
[2022-02-06] MEDS: levETIRAcetam 500 MG TABLET (FP) PO SCH (22:23)
[2022-02-07] MEDS ORDERED: metFORMIN HCL 500 MG TABLET (FP) PO SCH (07:00)
[2022-02-07] MEDS ORDERED: LEVOTHYROXINE NA 25 MCG TABLET (FP) PO SCH (07:00)
[2022-02-07] MEDS ORDERED: metFORMIN HCL 500 MG TABLET (FP) ONE (07:20)
[2022-02-07] MEDS ORDERED: LEVOTHYROXINE NA 25 MCG TABLET (FP) ONE (07:20)
[2022-02-07 07:29] LABS: BASO % 1.5 % (0-2.0); EOS % 0.9 % (0-4.5); HEMATOCRIT 33.1 % (32.4-45.2); HEMOGLOBIN 11.3 GM/dL (10.7-15.3); LYMPH % 39.5 % (8-40); MCH 31.6 pg (25.7-33.7); MCHC 34.1 g/dl (32.0-36.0); MEAN CELL VOLUME 92.6 fl (80-96); MEAN PLT VOLUME 9.5 fl (7.5-11.1); MONO % 10.8 % (3.8-10.2); NEUT % 47.3 % (42.8-82.8); PLATELET COUNT 113 10^3/uL (134-434); RBC 3.57 M/mm3 (3.60-5.2); RDW 15.6 % (11.6-15.6); WHITE BLOOD COUNT 7.5 K/mm3 (4.0-10.0)
[2022-02-07 08:05] LABS: BLOOD UREA NITROGEN 10.5 mg/dL (7-18); CALCIUM 8.9 mg/dL (8.5-10.1)
[2022-02-07 08:08] LABS: CREATININE 0.5 mg/dL (0.55-1.3)
[2022-02-07 08:10] LABS: BILIRUBIN,TOTAL 0.7 mg/dL (0.2-1); TOT PROT 6.7 g/dl (6.4-8.2)
[2022-02-07] MEDS: SODIUM CHLORIDE 1,000 ML IV SCH ×2 (09:52→17:15)
[2022-02-07] MEDS ORDERED: CYANOCOBALAMIN 1,000 MCG TABLET (FP) PO SCH (10:00)
[2022-02-07] MEDS ORDERED: levETIRAcetam 500 MG TABLET (FP) PO ONE (10:14)
[2022-02-07] MEDS ORDERED: HEPARIN NA (PORCINE) 5,000 UNITS/ML 1ML VIAL ONE (10:14)
[2022-02-07] MEDS: levETIRAcetam 500 MG TABLET (FP) PO SCH ×2 (10:21→21:49)
[2022-02-07] MEDS: HEPARIN NA (PORCINE) 5,000 UNITS/ML 1ML VIAL SQ SCH ×2 (10:21→21:50)
[2022-02-07] MEDS ORDERED: PIPERACILLIN/TAZOB 3.375 GM 3.375 GM in DEXTROSE 5%-WATER - 50 ML IVPB SCH (10:45)
[2022-02-07] MEDS ORDERED: PIPERACILLIN/TAZOB 3.375 GM 3.375 GM/50 ML BAG IVPB ONE (11:45)
[2022-02-07] MEDS ORDERED: DIVALPROEX SODIUM 500 MG TABLET E.C. PO SCH (13:45)
[2022-02-07 17:28] VITALS: BMI 32.2
[2022-02-07] MEDS ORDERED: DEXTROSE 5%-WATER - 50 ML IVPB ONE (17:59)
[2022-02-07] MEDS ORDERED: PIPERACILLIN/TAZOBACTAM 3.375 GM VIAL IVPB ONE (17:59)
[2022-02-07] MEDS: PIPERACILLIN/TAZOB 3.375 GM 3.375 GM in DEXTROSE 5%-WATER - 50 ML IVPB SCH (18:16)
[2022-02-07] MEDS: OLANZapine 5 MG TABLET PO SCH (21:50)
[2022-02-07] MEDS: ATORVASTATIN CA 20 MG TABLET (FP) PO SCH (21:50)
[2022-02-07] MEDS: DIVALPROEX SODIUM 500 MG TABLET E.C. PO SCH (22:44)
[2022-02-08] MEDS ORDERED: PIPERACILLIN/TAZOBACTAM 3.375 GM VIAL IVPB ONE ×3 (01:55→17:14)
[2022-02-08] MEDS ORDERED: DEXTROSE 5%-WATER - 50 ML IVPB ONE ×3 (01:55→17:14)
[2022-02-08] MEDS: PIPERACILLIN/TAZOB 3.375 GM 3.375 GM in DEXTROSE 5%-WATER - 50 ML IVPB SCH ×3 (02:21→17:16)
[2022-02-08] MEDS: metFORMIN HCL 500 MG TABLET (FP) PO SCH (06:57)
[2022-02-08] MEDS: LEVOTHYROXINE NA 25 MCG TABLET (FP) PO SCH (06:57)
[2022-02-08] MEDS: levETIRAcetam 500 MG TABLET (FP) PO SCH ×2 (09:52→21:36)
[2022-02-08] MEDS: HEPARIN NA (PORCINE) 5,000 UNITS/ML 1ML VIAL SQ SCH ×2 (09:52→21:35)
[2022-02-08] MEDS: DIVALPROEX SODIUM 500 MG TABLET E.C. PO SCH ×2 (09:53→21:36)
[2022-02-08] MEDS: CYANOCOBALAMIN 1,000 MCG TABLET (FP) PO SCH (09:53)
[2022-02-08] MEDS: OLANZapine 5 MG TABLET PO SCH (21:36)
[2022-02-08] MEDS: SODIUM CHLORIDE 1,000 ML IV SCH (21:36)
[2022-02-08] MEDS: ATORVASTATIN CA 20 MG TABLET (FP) PO SCH (21:36)
[2022-02-09] MEDS ORDERED: DEXTROSE 5%-WATER - 50 ML IVPB ONE ×3 (01:50→17:16)
[2022-02-09] MEDS ORDERED: PIPERACILLIN/TAZOBACTAM 3.375 GM VIAL IVPB ONE ×3 (01:50→17:16)
[2022-02-09] MEDS: PIPERACILLIN/TAZOB 3.375 GM 3.375 GM in DEXTROSE 5%-WATER - 50 ML IVPB SCH ×3 (02:00→17:18)
[2022-02-09] MEDS: metFORMIN HCL 500 MG TABLET (FP) PO SCH (06:30)
[2022-02-09] MEDS: LEVOTHYROXINE NA 25 MCG TABLET (FP) PO SCH (06:30)
[2022-02-09] MEDS: DIVALPROEX SODIUM 500 MG TABLET E.C. PO SCH ×2 (09:39→22:30)
[2022-02-09] MEDS: levETIRAcetam 500 MG TABLET (FP) PO SCH ×2 (09:39→22:31)
[2022-02-09] MEDS: HEPARIN NA (PORCINE) 5,000 UNITS/ML 1ML VIAL SQ SCH ×2 (09:39→22:33)
[2022-02-09] MEDS: CYANOCOBALAMIN 1,000 MCG TABLET (FP) PO SCH (09:39)
[2022-02-09] MEDS: SODIUM CHLORIDE 1,000 ML IV SCH (17:19)
[2022-02-09] MEDS: OLANZapine 5 MG TABLET PO SCH (22:31)
[2022-02-09] MEDS: ATORVASTATIN CA 20 MG TABLET (FP) PO SCH (22:31)
[2022-02-10] MEDS ORDERED: DEXTROSE 5%-WATER - 50 ML IVPB ONE ×2 (02:16→09:40)
[2022-02-10] MEDS ORDERED: PIPERACILLIN/TAZOBACTAM 3.375 GM VIAL IVPB ONE ×2 (02:16→09:40)
[2022-02-10] MEDS: PIPERACILLIN/TAZOB 3.375 GM 3.375 GM in DEXTROSE 5%-WATER - 50 ML IVPB SCH ×2 (02:30→09:49)
[2022-02-10] MEDS: metFORMIN HCL 500 MG TABLET (FP) PO SCH (06:12)
[2022-02-10] MEDS: LEVOTHYROXINE NA 25 MCG TABLET (FP) PO SCH (06:12)
[2022-02-10] MEDS: HEPARIN NA (PORCINE) 5,000 UNITS/ML 1ML VIAL SQ SCH (09:48)
[2022-02-10] MEDS: CYANOCOBALAMIN 1,000 MCG TABLET (FP) PO SCH (09:48)
[2022-02-10] MEDS: DIVALPROEX SODIUM 500 MG TABLET E.C. PO SCH (09:49)
[2022-02-10] MEDS: levETIRAcetam 500 MG TABLET (FP) PO SCH (09:49)
[2022-02-10 13:52] VITALS: BP 118/73; PULSE 87; TEMP 98.6
== END 2022-02-10 17:47 | DRG 720 ==
LOC: EDBD 08:58 → JER 08:58 → JERBED 14:02 → MERGE 14:02 → J6S 02-07 16:41
PROVIDERS: ADMIT Internal Medicine; ATTEND Internal Medicine
DX: A41.9 Sepsis, unspecified organism (principal); G92.8 Other toxic encephalopathy; J69.0 Pneumonitis due to inhalation of food and vomit; D69.6 Thrombocytopenia, unspecified; E87.2 Acidosis; G45.9 Transient cerebral ischemic attack, unspecified; B19.20 Unspecified viral hepatitis C without hepatic coma; E03.9 Hypothyroidism, unspecified; E11.9 Type 2 diabetes mellitus without complications; E78.5 Hyperlipidemia, unspecified; G40.909 Epilepsy, unspecified, not intractable, without status epilepticus; I10 Essential (primary) hypertension
CPT/HCPCS: 0241U-QW; 36415; 70450-TC; 71045-TC-FY; 80053; 80061; 80164; 80177; 81003; 82607; 82803; 82962; 83036; 83605; 84443; 85025; 85610; 85730; 86803; 86850; 86900; 86901; 87040; 87086; 87522; 87804; 87807; 93005; 93010; 99285-25; C9803-CS; J1644; U0003; U0005

== ENCOUNTER 2024-12-15 14:09 | Inpatient (IN) | payer OTHER ==
[2024-12-15 15:29] LABS: BASO % 1.1 % (0-2.0); HEMOGLOBIN 11.6 GM/dL (10.7-15.3); LYMPH % 25.3 % (8-40); MCH 30.1 pg (25.7-33.7); MCHC 32.2 g/dl (32.0-36.0); MEAN CELL VOLUME 93.4 fl (80-96); MEAN PLT VOLUME 9.5 fl (7.5-11.1); MONO % 10.7 % (3.8-10.2); NEUT % 62.9 % (42.8-82.8); PLATELET COUNT 152 10^3/uL (134-434); RBC 3.85 M/mm3 (3.60-5.2); RDW 14.7 % (11.6-15.6); WHITE BLOOD COUNT 12.3 K/mm3 (4.0-10.0)
[2024-12-15 15:39] LABS: CALCIUM 9.4 mg/dL (8.5-10.1)
[2024-12-15 15:40] LABS: ALBUMIN 3.1 g/dl (3.4-5.0); BLOOD UREA NITROGEN 17.3 mg/dL (7-18); MAGNESIUM 2.4 mg/dL (1.8-2.4)
[2024-12-15 15:43] LABS: CREATININE 0.6 mg/dL (0.55-1.3)
[2024-12-15 15:44] LABS: BILIRUBIN,TOTAL 0.4 mg/dL (0.2-1); TOT PROT 7.2 g/dl (6.4-8.2)
[2024-12-15 15:48] LABS: POTASSIUM 4.9 mmol/L (3.5-5.1)
[2024-12-15] MEDS ORDERED: levETIRAcetam 500 MG/5 ML INJECTION VIAL IVPB ONE (17:01)
[2024-12-15] MEDS: levETIRAcetam 500 MG/5 ML INJECTION VIAL IVPB ONE (17:19)
[2024-12-15] MEDS ORDERED: ONDANSETRON 4 MG/2 ML VIAL IVPUSH PRN (18:11)
[2024-12-15] MEDS: NICARDIPINE 25 MG in DEXTROSE 5%-WATER - 240 ML IVPB SCH (18:40)
[2024-12-15] MEDS: FACTOR XA,INACTIVATED - BOLUS 400 MG/40 ML VIAL IVPB ONE (18:56)
[2024-12-15] MEDS: INSULIN ASPART SLIDING SCALE (NOVOLOG) 1 VIAL SQ SCH (19:12)
[2024-12-15] MEDS: SODIUM CHLORIDE 50 ML IVPB ONE ×2 (19:18→20:26)
[2024-12-15] MEDS: FACTOR XA,INACTIVATED-ZHZO 480 MG/48 ML VIAL IVPB ONE (19:42)
[2024-12-15] MEDS ORDERED: VALPROATE SODIUM 500 MG/5 ML VIAL IVPB SCH (20:00)
[2024-12-15] MEDS: HYDROCORTISONE SOD SUCCINATE 100 MG/2 ML VIAL IVPUSH SCH (20:27)
[2024-12-15] MEDS: VALPROATE SODIUM INJECTION 500 MG in SODIUM CHLORIDE 100 ML IVPB SCH (20:45)
[2024-12-15] MEDS: CHLORHEXIDINE GLUCONATE 4% CLEANSER FOR DECOLONIZATION TP SCH (21:04)
[2024-12-15] MEDS: ACETAMINOPHEN 1000 MG/100 ML BAG IVPB PRN (21:45)
[2024-12-15] MEDS: MUPIROCIN 2% TOPICAL OINTMENT FOR DECOLONIZATION NS SCH (21:46)
[2024-12-15] MEDS: levETIRAcetam 500 MG/5 ML INJECTION VIAL IVPB SCH (21:47)
[2024-12-15] MEDS: ATORVASTATIN CA 20 MG TABLET (FP) PO SCH (22:06)
[2024-12-15] MEDS: valACYclovir HCL 500 MG TABLET (FP) PO SCH (22:46)
[2024-12-15 23:47] LABS: EPI CELLS 11 /uL (0-25.1); HYALINE CASTS 0 /uL (0-3.1); URINE APPEARANCE CLEAR; URINE BACTERIA 131 /uL (0-1359); URINE BILIRUBIN NEGATIVE (NEGATIVE); URINE COLOR YELLOW; URINE GLUCOSE (UA) NEGATIVE (NEGATIVE); URINE KETONE TRACE (NEGATIVE); URINE LEUK ESTERASE TRACE (NEGATIVE); URINE NITRITE NEGATIVE (NEGATIVE); URINE PROTEIN NEGATIVE (NEGATIVE); URINE RBC 49 /uL (0-23.9); URINE WBC 4 /uL (0-25.8)
[2024-12-16] MEDS: LEVOTHYROXINE NA 25 MCG TABLET (FP) PO SCH (06:17)
[2024-12-16 07:12] LABS: HEMATOCRIT 34.4 % (32.4-45.2); HEMOGLOBIN 11.6 GM/dL (10.7-15.3); MCH 31.2 pg (25.7-33.7); MCHC 33.7 g/dl (32.0-36.0); MEAN CELL VOLUME 92.6 fl (80-96); MEAN PLT VOLUME 9.7 fl (7.5-11.1); PLATELET COUNT 118 10^3/uL (134-434); RBC 3.72 M/mm3 (3.60-5.2); RDW 14.7 % (11.6-15.6); WHITE BLOOD COUNT 9.5 K/mm3 (4.0-10.0)
[2024-12-16 07:20] LABS: INR 1.28 (0.83-1.09); PROTHROMBIN TIME (PATIENT) 14.1 SEC (9.7-13.0)
[2024-12-16 07:23] LABS: ACTIVATED PTT 26.5 SECONDS (25.2-36.5)
[2024-12-16 07:41] LABS: POTASSIUM 4.1 mmol/L (3.5-5.1)
[2024-12-16 07:47] LABS: ALBUMIN 2.9 g/dl (3.4-5.0); BLOOD UREA NITROGEN 14.9 mg/dL (7-18)
[2024-12-16 07:48] LABS: CALCIUM 8.9 mg/dL (8.5-10.1); MAGNESIUM 2.4 mg/dL (1.8-2.4)
[2024-12-16 07:50] LABS: CREATININE 0.5 mg/dL (0.55-1.3); PHOSPHOROUS 5.2 mg/dL (2.5-4.9)
[2024-12-16 07:53] LABS: BILIRUBIN,TOTAL 0.5 mg/dL (0.2-1); TOT PROT 6.7 g/dl (6.4-8.2)
[2024-12-16] MEDS: PANTOPRAZOLE SODIUM 40 MG VIAL IVPUSH SCH (09:08)
[2024-12-16] MEDS: DEXMEDETOMIDINE PREMIX 400 MCG/100 ML BAG IVPB SCH (14:24)
[2024-12-16] MEDS: ARTIFICIAL TEARS OPHTHALMIC DROPS OU SCH (21:17)
[2024-12-17 06:51] LABS: BASO % 0.1 % (0-2.0); HEMATOCRIT 34.3 % (32.4-45.2); HEMOGLOBIN 11.1 GM/dL (10.7-15.3); LYMPH % 24.6 % (8-40); MCH 30.4 pg (25.7-33.7); MCHC 32.5 g/dl (32.0-36.0); MEAN CELL VOLUME 93.7 fl (80-96); MEAN PLT VOLUME 10.1 fl (7.5-11.1); MONO % 7.6 % (3.8-10.2); NEUT % 67.7 % (42.8-82.8); PLATELET COUNT 131 10^3/uL (134-434); RBC 3.67 M/mm3 (3.60-5.2); RDW 14.4 % (11.6-15.6); WHITE BLOOD COUNT 9.7 K/mm3 (4.0-10.0)
[2024-12-17 07:23] LABS: POTASSIUM 4.1 mmol/L (3.5-5.1)
[2024-12-17 07:25] LABS: ALBUMIN 2.6 g/dl (3.4-5.0); CALCIUM 8.6 mg/dL (8.5-10.1)
[2024-12-17 07:26] LABS: BLOOD UREA NITROGEN 17.2 mg/dL (7-18); MAGNESIUM 2.6 mg/dL (1.8-2.4)
[2024-12-17 07:29] LABS: CREATININE 0.5 mg/dL (0.55-1.3)
[2024-12-17 07:30] LABS: BILIRUBIN,TOTAL 0.4 mg/dL (0.2-1); TOT PROT 6.3 g/dl (6.4-8.2)
[2024-12-17 15:47] VITALS: BMI 25.6
[2024-12-18] MEDS: ACETAMINOPHEN 325 MG TABLET (FP) PO ONE (07:04)
[2024-12-18 11:36] VITALS: RESP 17
[2024-12-18] MEDS ORDERED: ONDANSETRON 4 MG/2 ML VIAL IVPUSH PRN (13:53)
[2024-12-18] MEDS: valACYclovir HCL 500 MG TABLET (FP) PO SCH (15:16)
[2024-12-18] MEDS ORDERED: INSULIN ASPART SLIDING SCALE (NOVOLOG) 1 VIAL SQ SCH (18:30)
[2024-12-18] MEDS: VALPROATE SODIUM INJECTION 500 MG in SODIUM CHLORIDE 100 ML IVPB SCH (18:34)
[2024-12-18] MEDS ORDERED: HYDROCORTISONE SOD SUCCINATE 100 MG/2 ML VIAL IVPUSH SCH (20:00)
[2024-12-18 20:17] VITALS: BP 147/86; PULSE 80; TEMP 98.1
[2024-12-18] MEDS ORDERED: ARTIFICIAL TEARS OPHTHALMIC DROPS OU SCH (22:00)
[2024-12-18] MEDS ORDERED: ATORVASTATIN CA 20 MG TABLET (FP) PO SCH (22:00)
[2024-12-18] MEDS ORDERED: levETIRAcetam 500 MG/5 ML INJECTION VIAL IVPB SCH (22:00)
[2024-12-19] MEDS ORDERED: LEVOTHYROXINE NA 25 MCG TABLET (FP) PO SCH (07:00)
== END 2024-12-18 18:04 | DRG 55 ==
LOC: JER 14:09 → JERBED 17:39 → JICU 20:11 → J4W 12-17 23:01
PROVIDERS: ADMIT Internal Medicine Pulmonary Disease; ATTEND Internal Medicine
DX: S06.5X0A Traumatic subdural hemorrhage without loss of consciousness, initial encounter (principal); S06.4X0A Epidural hemorrhage without loss of consciousness, initial encounter; B02.9 Zoster without complications; G40.909 Epilepsy, unspecified, not intractable, without status epilepticus; E03.9 Hypothyroidism, unspecified; E11.9 Type 2 diabetes mellitus without complications; W19.XXXA Unspecified fall, initial encounter; Y93.89 Activity, other specified; Y92.89 Other specified places as the place of occurrence of the external cause; Y99.8 Other external cause status
CPT/HCPCS: 0241U-QW; 36415; 70450-TC; 70486-TC; 72125-TC; 73110-TC-RT-FY; 73130-TC-RT-FY; 80053; 81003; 82962; 83036; 83735; 84100; 84443; 84484; 85025; 85027; 85610; 85730; 86850; 86900; 86901; 87086; 87186; 87481; 93005; 93010; 97116-GP; 97162-GP; 99291; J0131; J7169